=== PATIENT | female | born 2000 | race Two or more races ===

== ENCOUNTER 2024-02-16 14:05 | Observation (INO) | payer BC ==
[2024-02-16] MEDS ORDERED: PREN-96 PO (16:37)
== END 2024-02-16 16:49 | disposition home or self-care (01) ==
LOC: LDRP 14:05 → UNDOADMOB 14:05 → LDRP 15:14 → UNDODISOB 16:49
PROVIDERS: ADMIT Obstetrics & Gynecology; ATTEND Obstetrics & Gynecology
DX: O35.8XX0 Maternal care for other (suspected) fetal abnormality and damage, not applicable or unspecified (principal); O99.322 Drug use complicating pregnancy, second trimester; F12.90 Cannabis use, unspecified, uncomplicated; Z3A.27 27 weeks gestation of pregnancy
CPT/HCPCS: 59025; 76815; 81002; 94760; G0378